=== PATIENT | female | born 1990 | race Caucasian/White ===

== ENCOUNTER 2019-04-21 16:40 | Emergency (ER) | payer SELFPAY ==
[2019-04-21 16:52] VITALS: BP 131/94; PULSE 91; RESP 18; TEMP 37.2; O2SAT 100
--- NOTE | 2019-04-21 17:16 | ED.EAR ---
HPI - Ear Problem General Chief complaint: Ear Stated complaint: ear pain Source: patient and RN notes reviewed Mode of arrival: ambulatory Limitations: no limitations History of Present Illness HPI Narrative: The patient, who is a smoker/nondrinker, presents with a 10-day history of congestion now followed by couple day history of right ear discomfort. She was initially treated for influenza A last week, and those symptoms are better. No fever measured, sore throat, discharge; it is mild, worse with palpation. Related Data Allergies Allergy/AdvReac Type Severity Reaction Status Date / Time No Known Allergies Allergy Verified 04/21/19 16:44 Review of Systems Review of Systems: Narrative: The patient has been informed that they may have pre-hypertension or Hypertension based on a BP reading in the department. I recommend that the patient call the primary care provider listed on their discharge instructions or a physician of their choice this week to arrange follow up for further evaluation of possible pre-hypertension or Hypertension General/Constitutional: No weight loss,fever Eyes: N0: Redness,discharge Ears/Nose/Throat: No: Epistaxis,ear discharge Respiratory: Denies: Hemoptysis PMFSH Comments At time of signature, agree with nursing past medical, surgical, social and family history. There is no relevant family history pertinent to the presenting complaint Exam Narrative: Exam Narrative: General Appearance: Well appearing, Conjunctiva clear Ears: Auditory canal normal, right TM bulging red with scant bullous changes, left TM normal Nose: Rhinorrhea, Mucousal erythema Mouth/Throat: MM moist, Uvula midline, Pharyngeal erythema Supple, No adenopathy Respiratory: No respiratory distress, Breath sounds equal, Clear to auscultation Skin: Warm, Dry Neurological: A&O x3, Normal affect Course Vital Signs Vital signs: Vital Signs Temperature 98.9 F 04/21/19 16:52 Pulse Rate 91 04/21/19 16:52 Respiratory Rate 18 04/21/19 16:52 Blood Pressure 131/94 H 04/21/19 16:52 Pulse Oximetry 100 04/21/19 16:52 Temperature 98.9 F 04/21/19 16:52 Pulse Rate 91 04/21/19 16:52 Respiratory Rate 18 04/21/19 16:52 Blood Pressure 131/94 H 04/21/19 16:52 Pulse Oximetry 100 04/21/19 16:52 Medical Decision Making Vital Signs Vital Signs: Vital Signs Temperature 98.9 F 04/21/19 16:52 Pulse Rate 91 04/21/19 16:52 Respiratory Rate 18 04/21/19 16:52 Blood Pressure 131/94 H 04/21/19 16:52 Pulse Oximetry 100 04/21/19 16:52 Temperature 98.9 F 04/21/19 16:52 Pulse Rate 91 04/21/19 16:52 Respiratory Rate 18 04/21/19 16:52 Blood Pressure 131/94 H 04/21/19 16:52 Pulse Oximetry 100 04/21/19 16:52 Discharge Plan Discharge Clinical Impression: Otitis media Qualifiers: Otitis media type: suppurative Chronicity: acute Laterality: right Recurrence: non-recurrent Spontaneous tympanic membrane rupture: without spontaneous rupture Qualified Code(s): H66.001 - Acute suppurative otitis media without spontaneous rupture of ear drum, right ear Patient Disposition: Home, Self-Care Condition: Stable Instructions: Antibiotic Form, Ear Infection (ED) Prescriptions: New cefuroxime axetil 500 mg tablet 500 mg PO Q12H Qty: 14 RF: 0 ipratropium bromide 42 mcg (0.06 %) spray,non-aerosol 2 spray NASAL TID Qty: 15 RF: 1 amoxicillin-pot clavulanate [Augmentin] 500-125 mg tablet 1 tablet PO TID Qty: 30 RF: 0 fluconazole [Diflucan] 150 mg tablet 150 mg PO WEEKLY Qty: 2 RF: 0 Follow-up/Referrals: UNKNOWN,DOCTOR [Primary Care Provider] - Stand Alone Forms: Work/School Release IP Discharge Date/Time: 04/21/19 17:24
== END 2019-04-21 17:24 | disposition home or self-care (01) ==
PROVIDERS: Emergency Provider Emergency Medicine
DX: H66.001 Acute suppurative otitis media without spontaneous rupture of ear drum, right ear (principal)
CPT/HCPCS: 99213; G0463